=== PATIENT | male | born 1985 | race Caucasian/White ===

== ENCOUNTER 2019-07-20 09:24 | Day surgery (SDC) | payer OTHER ==
[2019-07-20] MEDS ORDERED: LIDOCAINE 1%-EPI 1:100,000 30 ML MDV IJ ONE (11:17)
[2019-07-20] MEDS ORDERED: ceFAZolin SODIUM 1 GM VIAL IVPB ONE (11:20)
[2019-07-20] MEDS ORDERED: LIDOCAINE 1%/EPI 1:100000 (50 ML MULTI DOSE VIAL) NR ONE (11:25)
[2019-07-20] MEDS ORDERED: MIDAZOLAM HCL 2 MG/2 ML SINGLE DOSE VIAL ONE (11:35)
[2019-07-20] MEDS ORDERED: PROPOFOL 20 ML ONE (11:38)
--- NOTE | 2019-07-20 12:20 | HP ---
DATE OF ADMISSION: 07/20/2019 The patient is a 34-year-old male with history of erectile dysfunction. The patient also has history of infertility for multiple years. He is to a 30-year-old female and neither has ever conceived. He denies any trauma or previous surgeries. He denies any allergies. A semen analysis revealed azoospermia. The patient denies any infectious diseases. The patient will go for a testicular biopsy to rule out the function of the seminiferous tubules. We will treat afterwards. Anson [id number]
--- NOTE | 2019-07-20 12:24 | OP ---
Operative Note - Note: Operative Date: 07/20/19 Pre-Operative Diagnosis: infertility and rt. hydrocele Operation: open testis biopsy and rt. hydrocelectomy Post-Operative Diagnosis: Same as Pre-op Cash Surrender Calculator: George Pinon Anesthesia: General Specimens Removed: rt. seminepherouse tubes and rt. tunica vaginalis Estimated Blood Loss (mls): 10 Drains, Volume Out (mls): 10 Fluid Volume Replaced (mls): 0 Operative Report Dictated: Yes
[2019-07-20 12:44] VITALS: TEMP 97.3
[2019-07-20 13:49] VITALS: BP 127/72; PULSE 85
--- NOTE | 2019-07-20 18:55 | OP ---
DATE OF OPERATION: 07/20/2019 PREOPERATIVE DIAGNOSIS: Infertility, right hydrocele. POSTOPERATIVE DIAGNOSIS: Infertility, right hydrocele. PROCEDURE: Right scrotal exploration, hydrocelectomy, open testicle biopsy. ANESTHESIA: General. DESCRIPTION OF PROCEDURE: Under above-stated anesthesia, patient was prepped and draped in the usual sterile manner. He was placed in the supine position. A right hemiscrotal incision was made. This was carried down through skin and subcutaneous tissue. A tense hydrocele was palpated. This was opened, and 40 mL of straw-colored fluid was drained. Excess hydrocele was excised with cautery and sent to Pathology. The edges were then everted and sutured on the cord using running, interlocking 3-0 Vicryl suture ligature. A 1-cm incision was made in the belly of the testicle. A 1-mm size section of yellow seminiferous tubules was removed and sent for testes biopsy. The tunica albuginea was then closed watertight with running, interlocking 6-0 Vicryl suture ligatures. No active bleeding was noted. The testicle was placed back in the scrotum. The wound was irrigated. A 1/4-inch [place] was also left in the scrotum and brought out a separate stab wound incision. The scrotal wound was closed with 3-0 Vicryl suture ligatures. The skin was closed with 4-0 chromic suture ligatures. Pressure dressing was applied. Patient tolerated the procedure well. He returned to the recovery room in good condition. Anosn [id number]
--- NOTE | 2019-07-24 09:25 | PATH ---
Surgical Pathology Report Patient Name: RAFAELA SALEH [facility]. Rec. #: [id number] /Age/Gender: 1985 (Age: 34) / M Account: [id number] Location: [facility] SURGICAL Taken: 07/20/2019 Received: 07/20/2019 Reported: 07/24/2019 Physicians: George Pinon M.D. Specimen(s) Received A: HYDROCELE SAC B: SEMINIFEROUS TUBULES, RIGHT TESTICLE Clinical History Benign neoplasm Final Diagnosis A. HYDROCELE SAC, EXCISION: CONSISTENT WITH HYDROCELE SAC. B. SEMINIFEROUS TUBULES, RIGHT TESTIS, BIOPSY: PORTIONS OF SEMINIFEROUS TUBULES CONTAIN ONLY SERTOLI CELLS. THE TUBULAR TUNICA PROPRIA IS HYALINIZED AND THICKENED. NO GERM CELL COMPONENT IS PRESENT. SEE COMMENT. SEPARATE PORTION OF EPIDIDYMIS WITH NO SIGNIFICANT PATHOLOGIC CHANGE. Comment: Findings may represent Sertoli cell-only syndrome in the proper clinical setting. Clinical correlation is recommended. Electronically Signed Ananda Wilson M.D. Gross Description A. Received in formalin labeled "hydrocele sac," is a 1.3 x 0.8 x 0.2 cm mullen-pink portion of soft tissue, consistent with a hydrocele sac. The specimen is trisected and entirely submitted in one cassette. B. Received in formalin labeled "seminiferous tubules right testicle," is a 1.7 x 0.9 x 0.3 cm mullen-pink portion of soft tissue as well as a 1.9 x 0.2 x 0.1 cm mullen-yellow portion of soft tissue. The specimens are submitted in toto in one cassette. 07/20/201907/20/2019
== END 2019-07-20 13:10 | disposition home or self-care (01) ==
LOC: JASU-SURG 09:24
PROVIDERS: ATTEND Urology
PROC: 0VB90ZX Excision of Right Testis, Open Approach, Diagnostic (ICD-10-PCS; 2019-07-20)
PROC: 0VBF0ZZ Excision of Right Spermatic Cord, Open Approach (ICD-10-PCS; principal; 2019-07-20 11:25)
DX: N43.2 Other hydrocele (principal); N46.9 Male infertility, unspecified
CPT/HCPCS: 88304-TC; 88305-TC